=== PATIENT | female | born 1970 | race Caucasian/White ===

== ENCOUNTER 2016-11-26 14:34 | Day surgery (SDC) | payer OTHER ==
[~2016-11-26] VITALS: Ht 158.8 cm; Wt 73.3 kg
[2016-11-26] VITALS (8 sets, daily range): BP systolic 113–133; BP diastolic 66–77; PULSE 64–85; RESP 14–16; Ht 158.8 cm; Wt 73.3 kg
--- NOTE | 2016-11-26 10:20 | PREOPHP ---
DATE OF ADMISSION: 11/26/2016 HISTORY OF PRESENT ILLNESS: This is a 45-year-old female coming in on , 11/26/2016 for a surgical procedure. This patient is 6, para 4, abortions 2. History of a tubal ligation and a primary section, gallbladder surgery and also history of having abnormal Pap smears with colposcopy. At the present time she has been diagnosed with a fibroid uterus and menometrorrhagia and anemia. She has been offered a D and C to control her bleeding, and a hysteroscopic hydrothermal ablation to control her bleeding that has led her to be admitted. PAST MEDICAL HISTORY: Past history otherwise is negative. The last Pap smear had been normal. Last year's Pap smear was with ASCUS, which was followed with colposcopy, and recently she has had normal Pap smears. The patient is undergoing an ablation to control her abnormal bleeding. She has been on progestin treatment. She has been on control pills and still breaking through with severe bleeding and also with anemia. She had a in 2014 with a tubal ligation. SOCIAL HISTORY: The patient has no history of drug addiction, smoking or drinking. She had a D and C before. FAMILY HISTORY: Noncontributory. ALLERGIES: SHE HAS NO ALLERGIES. PHYSICAL EXAMINATION: VITAL SIGNS: Vital signs are stable. Height is 5 feet 2 inches, weight is 171 pounds, blood pressure is 110/70, pulse of 80, respirations are 16. HEENT: Head is normal. NECK: Neck is normal. CHEST: Clear. HEART: Normal sinus rhythm. LUNGS: Clear. ABDOMEN: Soft, nontender, no masses. GENITOURINARY: Genitalia with normal external genitalia. Normal vagina. Uterus with a fibroid, 8 week size, nontender. No masses right now. The adnexas are nonpalpable. EXTREMITIES: Normal with normal pulses and no edema. IMPRESSION: 1. Intractable menometrorrhagia and pelvic pain. 2. Fibroid uterus. 3. Anemia. PLAN: She is undergoing a fractional D and C and hysteroscopy with hydrothermal ablation. She has been advised of the possible risk and the possible complications of the procedure with her alternatives and options. Written information was provided. She had no more questions and agreed to go ahead with the procedure with full understanding and no more questions. Dictated By: Marialuisa Blankenship MD /umberto/iman /Document#: [id number]
[~2016-11-26 14:34] MED LIST: CEFAZOLIN 2 GM/50 ML (PMX) 50 ML IVPB ONE; DOCU-144 PO; HYDR-3498 PO
--- NOTE | 2016-11-26 15:23 | HPN ---
Date/Time of Note Date/Time of Note DATE: 11/26/16 TIME: 15:23 Interval H&P Admission Note Pt. seen H&P reviewed: No system changes KAITLIN YODER MD Nov 26, 2016 15:23
[2016-11-26] MEDS ORDERED: PHEN37.53 PO (15:44)
[2016-11-26] MEDS ORDERED: MIDAZOLAM 1 MG/ML 2 ML INJ ONE (16:30)
[2016-11-26] MEDS ORDERED: PROPOFOL 20 ML ONE (16:40)
[2016-11-26] MEDS ORDERED: CEFAZOLIN 1 GM INJ ONE (16:40)
[2016-11-26] MEDS ORDERED: LIDOCAINE 2% (SDV) 5 ML INJ ONE (16:40)
[2016-11-26] MEDS ORDERED: DEXAMETHASONE 4 MG/ML 1 ML INJ ONE (16:43)
[2016-11-26] MEDS ORDERED: ONDANSETRON 4 MG INJ ONE (16:43)
[2016-11-26] MEDS ORDERED: FAMOTIDINE 20 MG INJ ONE (16:45)
[2016-11-26] MEDS ORDERED: HYDROmorphONE (0.2 MG/ML) 10ML SYG IV ONE (17:34)
[2016-11-26] MEDS ORDERED: HYDROmorphONE (0.2 MG/ML) 10ML SYG IV PRN (17:39)
[2016-11-26] MEDS: HYDROmorphONE (0.2 MG/ML) 10ML SYG IV PRN ×3 (17:45→17:59)
--- NOTE | 2016-11-26 17:56 | PD.PPDC ---
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
--- NOTE | 2016-11-26 18:01 | OPR ---
Date/Time of Note Date/Time of Note DATE: 11/26/16 TIME: 17:57 Operative Report Procedure Date: Nov 26, 2016 Preoperative Diagnosis intractable pelvic pain and bleeding fibroid uterus anemia Postoperative Diagnosis same Operation Performed FRACTIONAL D&C HYSTEROSCOPY HYDROTHERMAL ABLATION Surgeon: KAITLIN YODER MD Anesthesia Type: general Anesthesiologist: FANG CERVANTES DO Estimated Blood Loss: minimal Transfusion Required: no Specimen: none Specimens ENDOMETRIAL SAMPLING Complications: no Pt Condition Post Procedure: stable Disposition: PACU KAITLIN YODER MD Nov 26, 2016 18:01
[2016-11-26] MEDS ORDERED: KETOROLAC 30 MG INJ IV PRN (18:30)
--- NOTE | 2016-11-26 19:36 | OPR ---
DATE OF OPERATION: 11/26/2016 PROCEDURES: 1. Fractional D and C. 2. Hysteroscopy. 3. Hydrothermal ablation. PREOPERATIVE DIAGNOSES: 1. Intractable pelvic pain and bleeding. 2. Fibroid uterus. 3. Anemia. POSTOPERATIVE DIAGNOSES: 1. Intractable pelvic pain and bleeding. 2. Fibroid uterus. 3. Anemia. SURGEON: Dr. Marialuisa Blankenship. ANESTHESIOLOGIST: Dr. Ozuna. ANESTHESIA: General. OPERATIVE PROCEDURE: The patient was given general anesthesia, placed in the lithotomy position. The perineal vaginal area were prepped and draped. A confirmatory examination under anesthesia revealed that the uterus was retroverted with a small fibroid, adnexas were nonpalpable. The vaginal speculum was applied. The cervix was held. Endocervical curettage was done. The uterus was sounded to a depth of 8 cm and dilated to dilated slightly and systematic curettage of the endometrium was done. This was sent for histopathology. The hydrothermal ablation hysteroscope was placed inside and the ablation was done after the warmed up to 90 degrees Celsius and this was done for 10 minutes. The rest of the examination was finished by the hysteroscopy done after the procedure, which revealed that there was a good changing color in the mucosal lining. The procedure was finished by removing all the instruments. The patient tolerated the procedure well and left the OR awake and stable. Sponge counts and instrument counts were correct. Intravenous antibiotics were given for prophylaxis. Dictated By: Marialuisa Blankenship MD /umberto/liz /Document#: [id number]
--- NOTE | 2016-11-27 13:51 | RADRPT ---
Vent Rate: 61 bpm RR Interval: 0 msec ND Interval: 150 msec QRS Duration: 86 msec QT Interval: 462 msec QTC Interval: 465 msec P-R-T [place]: 48 - 55 - 57 degrees Sinus rhythm with marked sinus arrhythmia Otherwise normal ECG Electronically Signed By: Raghu Armendariz [id number]
== END 2016-11-26 18:45 | disposition home or self-care (01) ==
LOC: SDS 14:34
PROVIDERS: ATTEND Obstetrics & Gynecology
DX: R10.2 Pelvic and perineal pain (principal); D25.9 Leiomyoma of uterus, unspecified; D64.9 Anemia, unspecified
CPT/HCPCS: 58353; 88305; 93005; J0690; J1100; J1170; J2250; J2405; Z7512; Z7610